=== PATIENT | female | born 1990 | race American Indian/Alaskan Native ===

== ENCOUNTER 2016-05-06 18:50 | Outpatient (CLI) | payer MEDICAID ==
[2016-05-06] MEDS ORDERED: LACTATED RINGERS 500 ML IV ONE (19:04)
[2016-05-06] MEDS ORDERED: LACTATED RINGERS 1,000 ML ONE (19:18)
[2016-05-06 20:29] LABS: Bilirubin,Urine NEG (Negative); Blood,Urine NEG (Negative); Ketones,Urine TR mg/dL (Negative); Leukocyte Esterase,Urine TR (Negative); Mucus,Urine 3+ /HPF; Nitrite,Urine NEG (Negative); Urobilinogen,Urine < 2.0 mg/dL (<2.0)
[2016-05-06 20:54] VITALS: BP 111/51
== END 2016-05-06 21:15 | disposition home or self-care (01) ==
LOC: TRG 18:50
PROVIDERS: ATTEND Obstetrics & Gynecology
DX: O47.03 False labor before 37 completed weeks of gestation, third trimester (principal); Z3A.33 33 weeks gestation of pregnancy
CPT/HCPCS: 81001; 96360; J7120

== ENCOUNTER 2016-08-10 05:34 | Outpatient (CLI) | payer MEDICAID ==
[2016-08-10 06:00] VITALS: BP 100/61
[2016-08-10] MEDS ORDERED: LACTATED RINGERS 500 ML IV ONE (06:03)
[2016-08-10] MEDS ORDERED: LACTATED RINGERS 1,000 ML ONE (06:13)
[2016-08-10 07:26] LABS: Bacteria,Urine 1+ /HPF (Negative); Bilirubin,Urine NEG (Negative); Blood,Urine NEG (Negative); Ketones,Urine NEG (Negative); Leukocyte Esterase,Urine NEG (Negative); Nitrite,Urine NEG (Negative); Protein,Urine <15 mg/dL mg/dL (Negative); Urobilinogen,Urine < 2.0 mg/dL (<2.0); WBC,Urine < 1.0 /HPF (0.0-6.0)
== END 2016-08-10 06:46 | disposition home or self-care (01) ==
LOC: TRG 05:34
PROVIDERS: ATTEND Obstetrics & Gynecology
DX: O47.03 False labor before 37 completed weeks of gestation, third trimester (principal); Z3A.36 36 weeks gestation of pregnancy
CPT/HCPCS: 81001; J7120

== ENCOUNTER 2016-08-19 13:37 | Outpatient (CLI) | payer MEDICAID ==
[2016-08-19 14:14] VITALS: BP 109/64
[2016-08-19] MEDS ORDERED: BICITRA PO ONE (14:36)
== END 2016-08-19 14:50 | disposition home or self-care (01) ==
LOC: TRG 13:37
PROVIDERS: ATTEND Obstetrics & Gynecology
DX: O47.1 False labor at or after 37 completed weeks of gestation (principal); Z3A.37 37 weeks gestation of pregnancy
CPT/HCPCS: 59025

== ENCOUNTER 2016-08-30 11:39 | Outpatient (CLI) | payer MEDICAID ==
[2016-08-30 13:00] VITALS: BP 134/81
== END 2016-08-30 13:27 | disposition home or self-care (01) ==
LOC: TRG 11:39
PROVIDERS: ATTEND Obstetrics & Gynecology
DX: O47.1 False labor at or after 37 completed weeks of gestation (principal); Z3A.38 38 weeks gestation of pregnancy
CPT/HCPCS: 59025

== ENCOUNTER 2016-08-31 23:57 | Outpatient (CLI) | payer MEDICAID ==
[2016-09-01] MEDS ORDERED: VISTARIL PO ONE (00:36)
[2016-09-01 05:16] VITALS: BP 116/70
== END 2016-09-01 01:15 | disposition home or self-care (01) ==
LOC: TRG 23:57
PROVIDERS: ATTEND Obstetrics & Gynecology
DX: O47.1 False labor at or after 37 completed weeks of gestation (principal); Z3A.39 39 weeks gestation of pregnancy
CPT/HCPCS: 59025; Q0177